=== PATIENT | female | born 1990 | race Caucasian/White ===

== ENCOUNTER 2016-05-12 12:18 | Emergency (ER) | payer OTHER ==
[~2016-05-12] VITALS: Ht 160 cm; Wt 63.1 kg
[~2016-05-12 12:18] MED LIST: ACET325T33 PO; CYCL-319 PO
[2016-05-12 12:20] VITALS: Ht 160 cm; Wt 63.1 kg
[2016-05-12] MEDS ORDERED: IBUP-1542 PO (14:16)
[2016-05-12] MEDS ORDERED: ACET500C5 PO (14:16)
[2016-05-12] MEDS ORDERED: UDROBDM PO (14:16)
[2016-05-12] MEDS ORDERED: FLUT9.9S NASAL (14:17)
--- NOTE | 2016-05-12 14:23 | ERD ---
ER Documentation Chief Complaint Date/Time DATE: 05/12/16 TIME: 14:21 Chief Complaint cough,st x 2 days HPI This is 25-year-old female who presents to emergency department today with headache, sore throat, cough, body aches, fever or earache for the past 5 days. She is taking ibuprofen. Denies any vomiting or diarrhea ROS All systems reviewed and are negative except as per history of present illness. Medications Home Meds Active Scripts Fluticasone Propionate (Flonase Allergy Relief) 9.9 Ml [place].susp, 1 SPRAY NASAL DAILY, #1 BOTTLE TO EACH NOSTRIL Prov:SENDY ABBOTT PA-C 05/12/16 Guaifenesin-Dextromethorphan* (Robitussin* DM) 100MG/10MG/5ML Syrup, 10 ML PO Q4H Y for COUGH for 5 Days, ML Prov:SENDY ABBOTT PA-C 05/12/16 Acetaminophen* (Tylophen*) 500 Mg Capsule, 1 CAP PO Q6H Y for PAIN AND OR ELEVATED TEMP, #30 CAP Prov:SENDY ABBOTT PA-C 05/12/16 Ibuprofen* (Motrin*) 600 Mg Tab, 600 MG PO Q6, #30 TAB Prov:SENDY ABBOTT PA-C 05/12/16 Acetaminophen* (Tylenol*) 325 Mg Tablet, 1 TAB PO Q6 Y for PAIN AND OR ELEVATED TEMP, #20 TAB Prov:ERIN JEFFREY PA-C 09/09/15 Cyclobenzaprine Hcl* (Cyclobenzaprine Hcl*) 10 Mg Tablet, 10 MG PO BID, #20 TAB Prov:ERIN JEFFREY PA-C 09/09/15 Allergies Allergies: Coded Allergies: No Known Drug Allergies (Verified Allergy, Unknown, 03/12/14) PMhx/Soc History of Surgery: Yes (C SECTION 2007) Anesthesia Reaction: No Hx Neurological Disorder: No Hx Respiratory Disorders: No Hx Cardiac Disorders: No Hx Psychiatric Problems: No Hx Miscellaneous Medical Probl: Yes (MIGRAINE ) Hx Alcohol Use: Yes Hx Substance Use: No Hx Tobacco Use: No Physical Exam Vitals Vital Signs Date Time Temp Pulse Resp B/P Pulse Ox O2 Delivery O2 Flow Rate FiO2 05/12/16 12:20 98.1 75 18 120/75 99 Physical Exam Const: Nontoxic appearing, no acute distress Head: Atraumatic Eyes: Normal Conjunctiva ENT: Ears TMs normal. Nose no drainage. Throat no erythema no exudate . Neck: Full range of motion..~ No meningismus. Resp: Clear to auscultation bilaterally. No absent breath sounds. No wheezing. Cardio: Regular rate and rhythm, no murmurs Abd: Soft, non tender, non distended. Normal bowel sounds Skin: No petechiae or rashes Neur: Awake and alert Psych: Normal Mood and Affect Procedures/MDM This 25-year-old female who presents to the emergency department today complaining of flulike symptoms. Patient is afebrile here in the emergency department. Her oxygen saturation is 99%.Do not feel that she requires laboratory workup or imaging at this time. I have low suspicion for strep pharyngitis, peritonsillar abscess, retropharyngeal abscess, otitis media, PNA, sinusitis, abscess, meningitis, sepsis, or other acute infectious bacterial process. Patient was given a prescription for Tylenol, Motrin, Robitussin and Flonase. At this time the patient is stable for discharge and outpatient management. They should follow up with their PCP in the next 1-2. They may return to the emergency department sooner if symptoms persist or worsen. Patient understood and agreed with the plan. Departure Diagnosis: Primary Impression: Influenza-like symptoms Condition: Fair Patient Instructions: Influenza (Adult) Referrals: COMMUNITY CLINICS YOU HAVE RECEIVED A MEDICAL SCREENING EXAM AND THE RESULTS INDICATE THAT YOU DO NOT HAVE A CONDITION THAT REQUIRES URGENT TREATMENT IN THE EMERGENCY DEPARTMENT. FURTHER EVALUATION AND TREATMENT OF YOUR CONDITION CAN WAIT UNTIL YOU ARE SEEN IN YOUR DOCTORS OFFICE WITHIN THE NEXT 1-2 DAYS. IT IS YOUR RESPONSIBILITY TO MAKE AN APPOINTMENT FOR FOLOW-UP CARE. IF YOU HAVE A PRIMARY DOCTOR --you should call your primary doctor and schedule an appointment IF YOU DO NOT HAVE A PRIMARY DOCTOR YOU CAN CALL OUR PHYSICIAN REFERRAL HOTLINE AT IF YOU CAN NOT AFFORD TO SEE A PHYSICIAN YOU CAN CHOSE FROM THE FOLLOWING FORMERLY [facility] [address] [facility]. [facility] [address] [facility] [address] [facility]. [facility] [address] [facility]. [facility] [address] [facility] [address] Additional Instructions: Call your primary care doctor TOMORROW for an appointment during the next 1-2 days.See the doctor sooner or return here if your condition worsens before your appointment time. Take Tylenol 4 hours or Motrin 6 hours for headache or pain or fever Take Robitussin for cough Flonase for nasal congestion Drink Plenty of clear fluids SENDY ABBOTT PA-C May 12, 2016 14:23
== END 2016-05-12 14:31 | disposition home or self-care (01) ==
LOC: FTE 12:18
DX: R51 Headache (principal); J02.9 Acute pharyngitis, unspecified
CPT/HCPCS: 99283

== ENCOUNTER 2016-10-06 18:13 | Emergency (ER) | payer OTHER ==
[~2016-10-06] VITALS: Ht 157.5 cm; Wt 63.0 kg
[~2016-10-06 18:13] MED LIST changes: +ACET500C5 PO; +FLUT9.9S NASAL; +IBUP-1542 PO; +UDROBDM PO
[2016-10-06 18:16] VITALS: Ht 157.5 cm; Wt 63.0 kg
[2016-10-06] MEDS ORDERED: HYDROCODONE/APAP (5/325) TAB PO STA (19:22)
[2016-10-06] MEDS ORDERED: IBUPROFEN 600 MG TAB PO STA (19:22)
--- NOTE | 2016-10-06 21:00 | RADRPT ---
PROCEDURE: XR Left Foot. CLINICAL INDICATION: Trauma. Pain. TECHNIQUE: AP, lateral and oblique views of the left foot was obtained. The images were reviewed on a PACS workstation. COMPARISON: None. FINDINGS: There are no fractures. Joint relationships are maintained. Bone mineralization is within normal l imits. Soft tissues are unremarkable. IMPRESSION: No acute abnormality. RPTAT: HMVK .Jamil Pitts MD, MD Date Time Electronically viewed and signed by .Jamil Pitts MD, on 10/06/2016 21:00 .K/
[2016-10-06] MEDS ORDERED: IBUP-1542 PO (21:11)
--- NOTE | 2016-10-06 21:18 | ERD ---
ER Documentation Chief Complaint Date/Time DATE: 10/06/16 TIME: 21:15 Chief Complaint lt foot pain s/p trip and fall at work HPI This is a 25-year-old female presenting to the emergency department complaining of left foot pain located mostly in the lateral side status post hip and fall that occurred while she was at work at 3 PM today. Patient states the pain is 6 out of 10 in increased with movement and walking. Patient denies taking any medications for this. She admits to having some swelling to ROS All systems reviewed and are negative except as per history of present illness. Medications Home Meds Active Scripts Ibuprofen* (Motrin*) 600 Mg Tab, 600 MG PO Q6H Y for PAIN AND OR ELEVATED TEMP, #30 TAB Prov:WAQAS FERNANDEZ PA-C 10/06/16 Fluticasone Propionate (Flonase Allergy Relief) 9.9 Ml [place].susp, 1 SPRAY NASAL DAILY, #1 BOTTLE TO EACH NOSTRIL Prov:SENDY ABBOTT PA-C 05/12/16 Guaifenesin-Dextromethorphan* (Robitussin* DM) 100MG/10MG/5ML Syrup, 10 ML PO Q4H Y for COUGH for 5 Days, ML Prov:SENDY ABBOTT PA-C 05/12/16 Acetaminophen* (Tylophen*) 500 Mg Capsule, 1 CAP PO Q6H Y for PAIN AND OR ELEVATED TEMP, #30 CAP Prov:SENDY ABBOTT PA-C 05/12/16 Ibuprofen* (Motrin*) 600 Mg Tab, 600 MG PO Q6, #30 TAB Prov:SENDY ABBOTT PA-C 05/12/16 Acetaminophen* (Tylenol*) 325 Mg Tablet, 1 TAB PO Q6 Y for PAIN AND OR ELEVATED TEMP, #20 TAB Prov:ERIN JEFFREY PA-C 09/09/15 Cyclobenzaprine Hcl* (Cyclobenzaprine Hcl*) 10 Mg Tablet, 10 MG PO BID, #20 TAB Prov:ERIN JEFFREY PA-C 09/09/15 Allergies Allergies: Coded Allergies: No Known Drug Allergies (Verified Allergy, Unknown, 03/12/14) PMhx/Soc History of Surgery: Yes (C SECTION 2007) Anesthesia Reaction: No Hx Neurological Disorder: No Hx Respiratory Disorders: No Hx Cardiac Disorders: No Hx Psychiatric Problems: No Hx Miscellaneous Medical Probl: Yes (MIGRAINE ) Hx Alcohol Use: Yes Hx Substance Use: No Hx Tobacco Use: No Smoking Status: Never smoker Physical Exam Vitals Vital Signs Date Time Temp Pulse Resp B/P Pulse Ox O2 Delivery O2 Flow Rate FiO2 10/06/16 18:16 98.1 76 18 117/61 99 Physical Exam General: WD/WN, in no apparent distress, non-toxic appearing HENT: NC/AT Eyes: Conjunctiva normal Neck: Supple Pulm: Clear to auscultation, normal labored breathing; no wheezing/rales/ rhonchi heard CV: Good capillary refill GI: Non-distended, no guarding Back: No masses Ext: Tenderness palpation of the left lateral foot with moderate swelling. Restricted range of motion due to pain. Neuro: Moves on all fours Skin: intact Psych: Normal mood Results 24 hrs Current Medications Medications (Trade) Dose Ordered Sig/Jamey Route PRN Reason Start Time Stop Time Status Last Admin Dose Admin Ibuprofen (Motrin) 600 mg ONCE STAT PO 10/06/16 19:22 10/06/16 19:23 DC 10/06/16 20:31 Acetaminophen/ Hydrocodone Bitart ([place] (5/325)) 1 tab ONCE STAT PO 10/06/16 19:22 10/06/16 19:23 DC 10/06/16 20:31 Procedures/MDM This is 25-year-old female presenting to the emergency department complaining of left foot pain most likely due to a sprain. There was no evidence of a fracture dislocation. No evidence of compartment syndrome. An x-ray was done in the left foot and radiologist states no fracture or dislocation. An Martín bandage was placed. Patient is neurovascular intact pre-and post treatment. Patient was given crutches for support. Discussed return to the ER for any worsening symptoms. Patient understands and agrees with plan. Prescription for ibuprofen with right Departure Diagnosis: Primary Impression: Foot pain Additional Impression: Foot sprain Condition: Stable Patient Instructions: Sprain Foot Additional Instructions: FOLLOW UP WITH YOUR PRIMARY CARE PHYSICIAN TOMORROW.Return to this facility if you are not improving as expected. Take all medicines as directed. Return to this facility if you are not improving as expected. WAQAS FERNANDEZ PA-C Oct 06, 2016:18
== END 2016-10-06 21:29 | disposition home or self-care (01) ==
LOC: FTE 18:13
DX: S93.602A Unspecified sprain of left foot, initial encounter (principal); W01.0XXA Fall on same level from slipping, tripping and stumbling without subsequent striking against object, initial encounter; Y92.89 Other specified places as the place of occurrence of the external cause
CPT/HCPCS: 73630; Z7610

== ENCOUNTER 2017-02-08 12:41 | Emergency (ER) | payer OTHER ==
[~2017-02-08] VITALS: Ht 157.5 cm; Wt 70.0 kg
[2017-02-08 12:44] VITALS: Ht 157.5 cm; Wt 70.0 kg
[2017-02-08] MEDS ORDERED: ACETAMINOPHEN 500 MG TAB PO STA (13:05)
--- NOTE | 2017-02-08 14:32 | RADRPT ---
PROCEDURE: Obstetrical ultrasound CLINICAL INDICATION: trauma TECHNIQUE: Multiple sonographic images of the pelvis were obtained. The images were reviewed on a PACS workstation. COMPARISON: None LMP: 10/06/2016 FINDINGS: The cervix is closed with a length of 4.1 cm. Funneling is noted at the internal cervical os measuri ng up to 5 mm in diameter. There is a single viable intrauterine gestation. Cardiac activity is present with 146 beats per minute. There is a variable presentation. The placenta is anterior. There is no evidence for an abruption or placenta previa. There is a normal amount of amniotic fluid with a maximum vertical pocket of 3.2 cm. Measurements were made in order to determine age. The results are as follows (cm): BPD =3.21 HC =12.46 AC =10.18 FL =2.07 Estimated gestational age by ultrasound of approximately 16 weeks, 1 day. The estimated date of delivery by ultrasound is 07/25/2017. Estimated gestational age by LMP of approximately 17 weeks, 6 days. The estimated date of delivery by LMP is 07/13/2017. EFW = 148 grams (below the 3rd percentile) Bilateral ovaries are not visualized. There are no abnormal adnexal masses. IMPRESSION: Single viable intrauterine gestation of approximately 16 weeks, 1 day . The estimated date of delivery is 07/25/2017 . Dating by ultrasound is within 12 days of dating by LMP. Funneling is noted at the internal cervical os measuring up to 5 mm in diameter. The closed portion of the cervix measures up to 4.1 cm. Normal amount of amniotic fluid. Estimated weight is 148 g which is below the 3rd percentile. Anterior placenta without evidence of an abruption or placenta previa. RPTAT: EE Physician Raoul Date Time Electronically viewed and signed by Physician Raoul on 02/08/2017 14:31 /
--- NOTE | 2017-02-08 14:50 | ERD ---
ER Documentation Chief Complaint Chief Complaint abdominal pain s/p fall from chair, no ko HPI 26-year-old female is approximately 15 weeks . She was on a chair which fell backwards and she sustained some blunt abdominal trauma to her abdomen. She denies any vaginal bleeding, fevers, additional complaints. She has mild pain in the lower abdomen. ROS All systems reviewed and are negative except as per history of present illness. Medications Home Meds Active Scripts Ibuprofen* (Motrin*) 600 Mg Tab, 600 MG PO Q6H Y for PAIN AND OR ELEVATED TEMP, #30 TAB Prov:WAQAS FERNANDEZ PA-C 10/06/16 Fluticasone Propionate (Flonase Allergy Relief) 9.9 Ml [place].susp, 1 SPRAY NASAL DAILY, #1 BOTTLE TO EACH NOSTRIL Prov:SENDY ABBOTT PA-C 05/12/16 Guaifenesin-Dextromethorphan* (Robitussin* DM) 100MG/10MG/5ML Syrup, 10 ML PO Q4H Y for COUGH for 5 Days, ML Prov:SENDY ABBOTT PA-C 05/12/16 Acetaminophen* (Tylophen*) 500 Mg Capsule, 1 CAP PO Q6H Y for PAIN AND OR ELEVATED TEMP, #30 CAP Prov:SENDY ABBOTT PA-C 05/12/16 Ibuprofen* (Motrin*) 600 Mg Tab, 600 MG PO Q6, #30 TAB Prov:SENDY ABBOTT PA-C 05/12/16 Acetaminophen* (Tylenol*) 325 Mg Tablet, 1 TAB PO Q6 Y for PAIN AND OR ELEVATED TEMP, #20 TAB Prov:ERIN JEFFREY PA-C 09/09/15 Cyclobenzaprine Hcl* (Cyclobenzaprine Hcl*) 10 Mg Tablet, 10 MG PO BID, #20 TAB Prov:ERIN JEFFREY PA-C 09/09/15 Allergies Allergies: Coded Allergies: No Known Drug Allergies (Verified Allergy, Unknown, 02/08/17) PMhx/Soc History of Surgery: Yes (C SECTION 2007, CHOLECYSTECTOMY 2010) Anesthesia Reaction: No Hx Neurological Disorder: No Hx Respiratory Disorders: No Hx Cardiac Disorders: No Hx Psychiatric Problems: No Hx Miscellaneous Medical Probl: Yes (MIGRAINE ) Hx Alcohol Use: Yes Hx Substance Use: No Hx Tobacco Use: No Physical Exam Vitals Vital Signs Date Time Temp Pulse Resp B/P Pulse Ox O2 Delivery O2 Flow Rate FiO2 02/08/17 12:44 98.0 72 16 118/80 100 Physical Exam Const: [], [id number]. Head: Atraumatic Eyes: Normal Conjunctiva ENT: Normal External Ears, Nose and Mouth. Neck: Full range of motion..~ No meningismus. Resp: Clear to auscultation bilaterally Cardio: Regular rate and rhythm, no murmurs Abd: Soft, mild tenderness in the lower abdomen without tenderness at McBurney's point no ecchymosis. No rebound. non distended. Normal bowel sounds Skin: No petechiae or rashes Back: No midline or flank tenderness Ext: No cyanosis, or edema Neur: Awake and alert Psych: Normal Mood and Affect Results 24 hrs Current Medications Medications (Trade) Dose Ordered Sig/Jamey Route PRN Reason Start Time Stop Time Status Last Admin Dose Admin Acetaminophen (Tylenol Tab) 500 mg ONCE STAT PO 02/08/17 13:05 02/08/17 13:06 DC 02/08/17 13:16 Procedures/MDM The ultrasound shows approximately 16 week without acute findings. There is some noted internal funneling of the internal office otherwise no evidence of abruption, additional acute abnormalities. Patient presents with some blunt abdominal trauma to her second trimester without signs of significant abdominal trauma or threats to . She will discharged home with prescription for Tylenol for pain, OB follow-up and return precautions. The patient was stable with no new complaints during the ER course. Clinically, there is no current evidence to suggest meningitis, sepsis, acute abdomen, pneumonia, acute coronary syndrome, pulmonary embolism, or any other emergent condition appearing to require further evaluation or hospitalization. The patient should certainly return for any new or worsening symptoms per the aftercare instructions. They should otherwise follow-up with her primary care doctor for reevaluation this week. Departure Diagnosis: Primary Impression: Abdominal trauma Encounter type: initial encounter Qualified Code: S39.91XA - Abdominal trauma, initial encounter Additional Impression: Abdominal pain Abdominal location: generalized Qualified Code: R10.84 - Generalized abdominal pain Condition: Stable Patient Instructions: Abdominal Trauma, Blunt (Benign), Abdominal Pain, Early Additional Instructions: No acute findings seen on ultrasound today and read as normal. Recheck with OB or return for bleeding, fevers, new or worsening symptoms. Okay to take Tylenol for pain. KUNAL ONEIL MD Feb 08, 2017 14:49
== END 2017-02-08 15:18 | disposition home or self-care (01) ==
LOC: FTE 12:41
DX: O9A.212 Injury, poisoning and certain other consequences of external causes complicating pregnancy, second trimester (principal); S39.91XA Unspecified injury of abdomen, initial encounter; W07.XXXA Fall from chair, initial encounter; Y92.9 Unspecified place or not applicable; Z3A.16 16 weeks gestation of pregnancy
CPT/HCPCS: 76805; Z7502; Z7610

== ENCOUNTER 2017-07-04 12:08 | Outpatient (CLI) | END 2017-07-04 15:43 | disposition home or self-care (01) ==

== ENCOUNTER 2017-07-19 16:42 | Outpatient (CLI) | END 2017-07-19 18:35 | disposition home or self-care (01) ==

== ENCOUNTER 2017-07-23 05:57 | Inpatient (IN) | END 2017-07-27 14:50 | disposition home or self-care (01) | DRG 766 ==

== ENCOUNTER 2017-07-30 20:48 | Emergency (ER) | END 2017-07-30 23:11 | disposition home or self-care (01) ==

== ENCOUNTER 2017-12-27 18:55 | Emergency (ER) | END 2017-12-27 19:43 | disposition home or self-care (01) ==

== ENCOUNTER 2018-04-06 13:27 | Emergency (ER) | payer OTHER ==
[~2018-04-06] VITALS: Ht 157.5 cm; Wt 86.4 kg
[~2018-04-06 13:27] MED LIST changes: -ACET325T33 PO; -ACET500C5 PO; +BACI28.34 TOP; +CLOT30CR24 TOP; -CYCL-319 PO; -FLUT9.9S NASAL; +HC30CR25 TOP; +HYDR-3980 PO; -IBUP-1542 PO; +NAPR-688 PO; +PREN-93 PO; -UDROBDM PO; +VALA500T PO
[2018-04-06 13:43] VITALS: BP 140/79; PULSE 63; RESP 19; Ht 157.5 cm; Wt 86.4 kg
--- NOTE | 2018-04-06 15:10 | ERD ---
ER Documentation Chief Complaint Chief Complaint RIGHT RIB CAGE PAIN HPI 27-year-old female, presents to the emergency department, complaining of 3 days with acute onset of right chest wall pain. The patient is reporting a history of 7 days with upper respiratory symptoms including persistent cough, worse at night, but no fever, no chills no respiratory distress. She denies history of trauma in the area. No palpitations, no rashes. No medications taken at this time. ROS All systems reviewed and are negative except as per history of present illness. Medications Home Meds Active Scripts Promethazine Hcl* (Promethazine Hcl* Syrup) 6.25 Mg/5 Ml Syrup, 6.25 MG PO QHS PRN for COUGH, #60 ML Prov:DELIA OLSON MD 04/06/18 Acetaminophen* (Tylenol*) 325 Mg Tablet, 2 TAB PO Q8 PRN for PAIN AND OR ELEVATED TEMP, #20 TAB Prov:DELIA OLSON MD 04/06/18 Hydrocortisone* Topical (Hydrocortisone* Topical) 2.5%-28.3 Gm Cream..g., 1 APPLIC TOP BID, #1 TUB Prov:HEATH GARCIA PA-C 12/27/17 Bacitracin* (Bacitracin Zinc Oint*) 28.35 Gm Oint, 1 APPLIC TOP BID, #1 TUB APPLI TO Prov:HEATH GARCIA PA-C 12/27/17 Clotrimazole* (Clotrimazole* AF) 1% - 30 Gm Cream.gm., 1 APPLIC TOP BID for 7 Days, TUB Prov:HEATH GARCIA PA-C 12/27/17 Naproxen* (Naproxen*) 500 Mg Tablet, 500 MG PO BID PRN for PAIN, #20 TAB Prov:LAVONNE MORRISON DO 07/30/17 Hydrocodone/Acetaminophen ([place] 10-325 Tablet) 1 Each Tablet, 1 EACH PO Q6, #14 TAB Prov:LAVONNE MORRISON DO 07/30/17 Valacyclovir Hcl* (Valacyclovir Hcl*) 500 Mg Tablet, 1000 MG PO TID for 7 Days, TAB Prov:LAVONNE MORRISON DO 07/30/17 Reported Medications Vit No.124/Iron/FA ( Vitamin Tablet) 1 Each Tablet, 1 EACH PO, TAB 4/9/18 Allergies Allergies: Coded Allergies: No Known Drug Allergies (Verified Allergy, Unknown, 02/08/17) PMhx/Soc History of Surgery: Yes (C SECTION 2007, CHOLECYSTECTOMY 2010) Anesthesia Reaction: No Hx Neurological Disorder: No Hx Respiratory Disorders: No Hx Cardiac Disorders: No Hx Psychiatric Problems: No Hx Miscellaneous Medical Probl: Yes (MIGRAINE ) Hx Alcohol Use: No Hx Substance Use: No Hx Tobacco Use: No Physical Exam Vitals Vital Signs Date Temp Pulse Resp B/P (MAP) Pulse Ox O2 O2 Flow FiO2 Time Delivery Rate 04/06/18 97.4 63 19 140/79 97 13:43 (99) Physical Exam Const: No acute distress Head: Atraumatic Eyes: Normal Conjunctiva ENT: Normal External Ears, Nose and Mouth. Neck: Full range of motion. No meningismus. Resp: Clear to auscultation bilaterally Cardio: Regular rate and rhythm, no murmurs Abd: Soft, non tender, non distended. Normal bowel sounds Skin: No petechiae or rashes Back: No midline or flank tenderness Ext: No cyanosis, or edema Neur: Awake and alert Psych: Normal Mood and Affect Results 24 hrs DIAGNOSTIC IMAGING REPORT Patient: MIGUEL SERRANO : 1990 Age: 27 Sex: F MR #: [id number] DOS: 04/06/18 1417 Ordering MD: DELIA OLSON MD Location: [facility] Room/Bed: PROCEDURE: XR Chest. CLINICAL INDICATION: Cough TECHNIQUE: PA and lateral views of the chest were obtained. COMPARISON: CR CHEST 09/09/2015; CR CHEST 03/10/2014 FINDINGS: No focal airspace opacification, pleural effusion or pneumothorax is seen. The cardiomediastinal silhouette is within normal limits for size. The osseous structures are unremarkable. IMPRESSION: Unremarkable chest x-ray series. RPTAT: HH .Reean Frias MD, Date Time Electronically viewed and signed by .Reena Frias MD, on 04/06/2018 14:39 .G/ CC: DELIA OLSON MD [phone] Procedures/MDM Differential diagnosis include but not limited to: Pneumonia, soft tissue contusion, sprain/strain, muscle spasm, fracture. Neurovascular exam grossly intact. no clinical findings suggestive of fracture, no acute deformity, no edema, no rashes. Physical examination and clinical presentation consistent most likely with chest wall muscle strain, most likely secondary to cough. During the ED course the patient remained stable, without complaints. Results and clinical impression discussed with patient who agrees with management. The patient is stable to be treated outpatient and will be discharged home with recommendations and close monitoring The patient was instructed to follow up with the primary care provider in the next 48h. If symptoms persist, worsen or new symptoms develop, then patient should return to the ED immediately. Instructions explained and given to patient with acknowledgment and demonstrated understanding. Disclaimer: Inadvertent spelling and grammatical errors are likely due to EHR/dictation software use and do not reflect on the overall quality of patient care. Also, please note that the electronic time recorded on this note does not necessarily reflect the actual time of the patient encounter. Departure Diagnosis: Primary Impression: Cough Additional Impression: Chest wall muscle strain Condition: Stable Additional Instructions: Thank you very much for allowing us to participate in your care. Your health and safety is our top priority at [facility]. Call your primary care doctor TOMORROW for an appointment during the next 2-4 days and bring all the information and medications prescribed. Have prescriptions filled and follow precisely the directions on the label. If the symptoms get worse and your provider is unavailable, return to the Emergency Department immediately. DELIA OLSON MD Apr 06, 2018 15:10
[2018-04-06] MEDS ORDERED: ACET325T33 PO (15:11)
[2018-04-06] MEDS ORDERED: PROM6.2515 PO (15:11)
== END 2018-04-06 15:38 | disposition home or self-care (01) ==
LOC: FTE 13:27
DX: S29.011A Strain of muscle and tendon of front wall of thorax, initial encounter (principal); R05 Cough; X58.XXXA Exposure to other specified factors, initial encounter; Y92.9 Unspecified place or not applicable
CPT/HCPCS: 71046; Z7502

== ENCOUNTER 2018-04-17 14:43 | Emergency (ER) | payer OTHER ==
[~2018-04-17] VITALS: Ht 157.5 cm; Wt 84.3 kg
[~2018-04-17 14:43] MED LIST changes: +ACET325T33 PO; +PROM6.2515 PO
[2018-04-17 15:23] VITALS: Ht 157.5 cm; Wt 84.3 kg
[2018-04-17] MEDS ORDERED: ONDANSETRON 4 MG INJ IV STA (17:58)
[2018-04-17] MEDS ORDERED: SOD CHLORIDE 0.9% 1,000 ML IV STA (17:58)
[2018-04-17] MEDS ORDERED: KETOROLAC 30 MG INJ IV STA (17:58)
[2018-04-17] MEDS ORDERED: ACETAMINOPHEN 325 MG TAB PO ONE (18:00)
[2018-04-17 19:01] VITALS: BP 101/50; PULSE 102; RESP 18
[2018-04-17] MEDS ORDERED: IBUP-1542 PO (19:01)
[2018-04-17] MEDS ORDERED: ONDA8TAB14 PO (19:01)
--- NOTE | 2018-04-17 19:06 | ERD ---
ER Documentation Chief Complaint Chief Complaint complains of abdominal pain with fever x 2 days HPI 27-year-old female presents with fever and intermittent vomiting for last 2 days. She also has body aches. She has had some right chest wall pain for several months as well. She had a normal x-ray. She has a history of cholecyst ectomy. She is concerned she may have UTI as well. Denies calf swelling, hemoptysis, shortness of breath. ROS All systems reviewed and are negative except as per history of present illness. Medications Home Meds Active Scripts Ibuprofen* (Motrin*) 600 Mg Tab, 600 MG PO Q6, #30 TAB Prov:KUNAL ONEIL MD 04/17/18 Ondansetron (Ondansetron Odt) 8 Mg Tab.rapdis, 8 MG PO Q6H PRN for NAUSEA AND/OR VOMITING, #10 TAB Prov:KUNAL ONEIL MD 04/17/18 Promethazine Hcl* (Promethazine Hcl* Syrup) 6.25 Mg/5 Ml Syrup, 6.25 MG PO QHS PRN for COUGH, #60 ML Prov:DELIA OLSON MD 04/06/18 Acetaminophen* (Tylenol*) 325 Mg Tablet, 2 TAB PO Q8 PRN for PAIN AND OR ELEVATED TEMP, #20 TAB Prov:DELIA OLSON MD 04/06/18 Hydrocortisone* Topical (Hydrocortisone* Topical) 2.5%-28.3 Gm Cream..g., 1 APPLIC TOP BID, #1 TUB Prov:HEATH GARCIA PA-C 12/27/17 Bacitracin* (Bacitracin Zinc Oint*) 28.35 Gm Oint, 1 APPLIC TOP BID, #1 TUB APPLI TO Prov:HEATH GARCIA PA-C 12/27/17 Clotrimazole* (Clotrimazole* AF) 1% - 30 Gm Cream.gm., 1 APPLIC TOP BID for 7 Days, TUB Prov:HEATH GARCIA PA-C 12/27/17 Naproxen* (Naproxen*) 500 Mg Tablet, 500 MG PO BID PRN for PAIN, #20 TAB Prov:LAVONNE MORRISON DO 07/30/17 Hydrocodone/Acetaminophen ([place] 10-325 Tablet) 1 Each Tablet, 1 EACH PO Q6, #14 TAB Prov:LAVONNE MORRISON DO 07/30/17 Valacyclovir Hcl* (Valacyclovir Hcl*) 500 Mg Tablet, 1000 MG PO TID for 7 Days, TAB Prov:LAVONNE MORRISON DO 07/30/17 Reported Medications Vit No.124/Iron/FA ( Vitamin Tablet) 1 Each Tablet, 1 EACH PO, TAB 07/04/17 Allergies Allergies: Coded Allergies: No Known Drug Allergies (Verified Allergy, Unknown, 02/08/17) PMhx/Soc History of Surgery: Yes (C SECTION 2007, CHOLECYSTECTOMY 2010) Anesthesia Reaction: No Hx Neurological Disorder: No Hx Respiratory Disorders: No Hx Cardiac Disorders: No Hx Psychiatric Problems: No Hx Miscellaneous Medical Probl: Yes (MIGRAINE ) Hx Alcohol Use: No Hx Substance Use: No Hx Tobacco Use: No Smoking Status: Never smoker FmHx Family History: No diabetes, No coronary disease, No other Physical Exam Vitals Vital Signs Date Temp Pulse Resp B/P (MAP) Pulse Ox O2 O2 Flow FiO2 Time Delivery Rate 04/17/18 99.0 102 18 101/50 97 Room Air 19:01 (67) 04/17/18 100.6 18:13 04/17/18 100.6 105 20 130/72 98 15:23 (91) Physical Exam Const: No acute distress Head: Atraumatic Eyes: Normal Conjunctiva ENT: Normal External Ears, Nose and Mouth. Neck: Full range of motion. No meningismus. Resp: Clear to auscultation bilaterally. Tenderness right T10 chest wall. No Last sign. No abdominal tenderness. Cardio: Regular rate and rhythm, no murmurs Abd: Soft, non tender, non distended. Normal bowel sounds Skin: No petechiae or rashes Back: No midline or flank tenderness Ext: No cyanosis, or edema Neur: Awake and alert Psych: Normal Mood and Affect Result Diagram: 04/17/18180604/17/181806 Results 24 hrs Laboratory Tests Test 04/17/18 18:07 04/17/18 18:33 White Blood Count 11.3 10^3/ul Red Blood Count 4.73 10^6/ul Hemoglobin 14.7 g/dl Hematocrit 44.2 % Mean Corpuscular Volume 93.4 fl Mean Corpuscular Hemoglobin 31.1 pg Mean Corpuscular Hemoglobin Concent 33.3 g/dl Red Cell Distribution Width 11.9 % Platelet Count 269 10^3/UL Mean Platelet Volume 10.5 fl Immature Granulocytes % 0.400 % Neutrophils % 92.2 % Lymphocytes % 3.5 % Monocytes % 3.7 % Eosinophils % 0.0 % Basophils % 0.2 % Nucleated Red Blood Cells % 0.0 /100WBC Immature Granulocytes # 0.050 10^3/ul Neutrophils # 10.4 10^3/ul Lymphocytes # 0.4 10^3/ul Monocytes # 0.4 10^3/ul Eosinophils # 0.0 10^3/ul Basophils # 0.0 10^3/ul Nucleated Red Blood Cells # 0.0 10^3/ul Urine Color YELLOW Urine Clarity CLEAR Urine pH 5.0 Urine Specific [place] 1.024 Urine Ketones 1+ mg/dL Urine Nitrite NEGATIVE mg/dL Urine Bilirubin NEGATIVE mg/dL Urine Urobilinogen NEGATIVE mg/dL Urine Leukocyte Esterase NEGATIVE [place]isabet/ul Urine Hemoglobin NEGATIVE mg/dL Urine Glucose 1+ mg/dL Urine Total Protein NEGATIVE mg/dl Sodium Level 138 mmol/L Potassium Level 4.1 mmol/L Chloride Level 104 mmol/L Carbon Dioxide Level 20 mmol/L Anion Gap 14 Blood Urea Nitrogen 12 mg/dl Creatinine 0.60 mg/dl Est Glomerular Filtrat Rate mL/min > 60 mL/min Glucose Level 111 mg/dl Calcium Level 9.5 mg/dl Total Bilirubin 0.9 mg/dl Direct Bilirubin 0.00 mg/dl Indirect Bilirubin 0.9 mg/dl Aspartate Amino Transf (AST/SGOT) 42 IU/L Alanine Aminotransferase (ALT/SGPT) 34 IU/L Alkaline Phosphatase 107 IU/L Total Protein 8.2 g/dl Albumin 4.9 g/dl Globulin 3.30 g/dl Albumin/Globulin Ratio 1.48 Lipase 23 U/L POC Beta HCG, Qualitative NEGATIVE Current Medications Medications Dose Sig/Jamey Start Time Status Last (Trade) Ordered Route PRN Stop Time Admin Dose Reason Admin Sodium 1,000 ml @ Q1H STAT 04/17/18 DC 04/17/18 Chloride 1,000 mls/hr IV 17:58 18:08 04/17/18 18:57 Ondansetron 4 mg ONCE STAT 04/17/18 DC 04/17/18 HCl (Zofran IV 17:58 18:13 Inj) 04/17/18 17:59 Ketorolac 30 mg ONCE STAT 04/17/18 DC 04/17/18 Tromethamine IV 17:58 18:37 (Toradol) 04/17/18 17:59 650 mg ONCE ONCE 04/17/18 DC 04/17/18 Acetaminophen PO 18:00 18:13 (Tylenol 04/17/18 18:01 Tab) Procedures/MDM CBC shows a white blood cell count 11.3. CMP and lipase showed no significant abnormality except for CO2 of 20. Patient was given 1 L normal saline IV. Urine is negative for findings of infection. Chest X-ray 1V Interpreted by me: Soft Tissue: No acute abnormalities Bones: No acute abnormalities Mediastinum/Cardiac Silhouette/Lungs: No acute abnormalities. Patient was given Zofran and Toradol IV. Patient was given Tylenol as well. She was well-appearing and had a benign abdomen on serial exam. Patient presents with viral illness, body aches, vomiting. She may have a viral illness. Does not appear to be relation to her right chest wall pain she has had for a few months. Doubt PE given the duration of symptoms and presentation. Patient has PERC score 1 with tachycardia likely due to fever. Patient will be treated with Zofran, ibuprofen, primary care follow-up and return precautions for shortness of breath, vomiting despite treatment, blood, abdominal pain, new worsening symptoms. Departure Diagnosis: Primary Impression: Vomiting Vomiting type: unspecified Vomiting Intractability: unspecified Nausea presence: unspecified Qualified Codes: R11.10 - Vomiting, unspecified Additional Impression: Fever Fever type: unspecified Qualified Codes: R50.9 - Fever, unspecified Condition: Stable Patient Instructions: Chest Wall Pain, Costochondritis, Fever Control (Adult), Vomiting (6Y-Adult) Additional Instructions: Examination showed no significant findings of infection today. May be viral syndrome which may last a few days. Recheck for new or worsening symptoms with primary care doctor. KUNAL ONEIL MD Apr 17, 2018 19:06
== END 2018-04-17 19:20 | disposition home or self-care (01) ==
LOC: FTE 14:43
DX: R11.10 Vomiting, unspecified (principal); R50.9 Fever, unspecified
CPT/HCPCS: 36415; 71045; 80053; 81003; 81025; 83690; 85025; 96374; 96375; J1885; J2405; J7030; Z7502; Z7610

== ENCOUNTER 2019-01-19 07:16 | Inpatient (IN) | payer OTHER ==
[~2019-01-19] VITALS: Ht 157.5 cm; Wt 78.5 kg
[~2019-01-19 07:16] MED LIST changes: +IBUP-1542 PO; +ONDA8TAB14 PO
[2019-01-19 07:35] VITALS: Ht 157.5 cm; Wt 78.5 kg
[2019-01-19] MEDS ORDERED: LACTATED RINGER'S 1,000 ML IV ONE (08:00)
[2019-01-19] MEDS ORDERED: CEFAZOLIN 2 GM/50 ML (PMX) 50 ML IVPB SCH (08:00)
[2019-01-19] MEDS ORDERED: METHYLERGONOVINE 0.2 MG INJ IM PRN ×2 (08:00→21:30)
[2019-01-19] MEDS ORDERED: CARBOPROST 250 MCG INJ IM PRN ×2 (08:00→21:30)
[2019-01-19] MEDS ORDERED: MISOPROSTOL 200 MCG TAB PR PRN ×2 (08:00→21:30)
[2019-01-19] MEDS ORDERED: OXYTOCIN 30 UNITS/LR 500 ML IV PRN ×2 (08:00→21:30)
[2019-01-19] MEDS ORDERED: OXYTOCIN 30 UNITS/LR 500 ML IV SCH (08:00)
[2019-01-19] MEDS: LACTATED RINGER'S 1,000 ML IV SCH ×2 (08:17→14:56)
[2019-01-19] MEDS ORDERED: CITRIC ACID/NA CITRATE 30 ML CUP PO ONE (09:00)
[2019-01-19] MEDS ORDERED: morphine SULFATE/PF (10 MG/10 ML) INJ ONE (16:38)
[2019-01-19] MEDS ORDERED: METOCLOPRAMIDE 10 MG INJ ONE (16:38)
[2019-01-19] MEDS ORDERED: KETOROLAC 30 MG INJ ONE ×2 (16:39→19:40)
[2019-01-19] MEDS ORDERED: PHENYLephrine (100 MCG/ML) 10ML SYG ONE (16:48)
[2019-01-19] MEDS ORDERED: EPHEDrine 25 MG/5 ML SYG ONE (17:04)
[2019-01-19] MEDS ORDERED: ONDANSETRON 4 MG INJ ONE (17:05)
[2019-01-19] MEDS ORDERED: OXYTOCIN 30 UNITS/LR 500 ML IV ONE (17:23)
[2019-01-19] MEDS ORDERED: DIPHENHYDRAMINE 50 MG INJ ONE (18:30)
[2019-01-19] MEDS ORDERED: DIPHENHYDRAMINE 50 MG INJ IV ONE (19:00)
[2019-01-19] MEDS ORDERED: ONDANSETRON 4 MG INJ IV PRN ×3 (20:00→21:30)
[2019-01-19] MEDS ORDERED: morphine 2 MG INJ IV PRN ×5 (20:00)
[2019-01-19] MEDS ORDERED: DIPHENHYDRAMINE 50 MG INJ IV PRN ×2 (20:00→21:30)
[2019-01-19] MEDS ORDERED: KETOROLAC 30 MG INJ IV PRN (20:00)
[2019-01-19] MEDS ORDERED: NALOXONE (0.4 MG/ML) INJ IV PRN (20:00)
[2019-01-19 21:00] VITALS: BP 113/63; PULSE 71; RESP 19
[2019-01-19] MEDS ORDERED: LACTATED RINGER'S 1,000 ML IV SCH (21:04)
[2019-01-19] MEDS ORDERED: ZOLPIDEM 5 MG TAB PO PRN (21:30)
[2019-01-19] MEDS ORDERED: LANOLIN HPA 1 PKT TOP PRN (21:30)
[2019-01-19 22:00] VITALS: BP 118/63; PULSE 71; RESP 19
[2019-01-20] MEDS: DIPHENHYDRAMINE 50 MG INJ IV PRN ×3 (00:31→16:24)
[2019-01-20] MEDS: KETOROLAC 30 MG INJ IV PRN ×3 (00:31→17:06)
[2019-01-20] MEDS: morphine 2 MG INJ IV PRN ×4 (00:55→15:32)
[2019-01-20 04:30] VITALS: BP 104/56; PULSE 63; RESP 19
[2019-01-20 08:00] VITALS: BP 101/53; PULSE 62; RESP 18
[2019-01-20] MEDS: SENNA/DOCUSATE NA (8.6MG/50MG) TAB PO SCH ×2 (09:00→20:23)
[2019-01-20 12:21] VITALS: BP 107/55; PULSE 61; RESP 18
[2019-01-20 15:40] VITALS: BP 103/58; PULSE 65; RESP 18
[2019-01-20 19:10] VITALS: BP 101/54; PULSE 66; RESP 18
[2019-01-20] MEDS ORDERED: OXYCODONE/ACETAMINOPHEN (5/325) TAB PO PRN (20:00)
[2019-01-20] MEDS: OXYCODONE/ACETAMINOPHEN (5/325) TAB PO PRN (20:23)
[2019-01-20] MEDS: IBUPROFEN 600 MG TAB PO SCH (23:16)
[2019-01-21] MEDS: OXYCODONE/ACETAMINOPHEN (5/325) TAB PO PRN ×5 (00:09→21:17)
[2019-01-21 03:02] VITALS: BP 100/59; PULSE 60; RESP 18
[2019-01-21] MEDS: IBUPROFEN 600 MG TAB PO SCH ×4 (05:30→23:52)
[2019-01-21] MEDS: SENNA/DOCUSATE NA (8.6MG/50MG) TAB PO SCH ×2 (08:15→21:18)
[2019-01-21 08:32] VITALS: BP 102/52; PULSE 63; RESP 18
[2019-01-21 16:07] VITALS: BP 110/69; PULSE 71; RESP 18
[2019-01-21 19:45] VITALS: BP 119/79; PULSE 71; RESP 18
[2019-01-22] MEDS: OXYCODONE/ACETAMINOPHEN (5/325) TAB PO PRN ×3 (02:35→15:37)
[2019-01-22] MEDS ORDERED: PETROLATUM 5 GM OINT TOP ONE (03:43)
[2019-01-22 04:30] VITALS: BP 100/58; PULSE 72; RESP 19
[2019-01-22] MEDS: IBUPROFEN 600 MG TAB PO SCH ×2 (05:41→13:14)
[2019-01-22] MEDS ORDERED: BISACODYL 10 MG SUPP PR ONE (08:00)
[2019-01-22 08:15] VITALS: BP 133/76; PULSE 61
[2019-01-22] MEDS ORDERED: DIPHTH/TET/ACEL PERTUSS (ADULT) 0.5 ML VIAL IM* ONE (09:00)
[2019-01-22] MEDS: SENNA/DOCUSATE NA (8.6MG/50MG) TAB PO SCH (09:06)
[2019-01-22] MEDS ORDERED: MEASLES,MUMPS,RUBELLA VACCINE INJ SC* ONE (15:30)
== END 2019-01-22 16:50 | disposition home or self-care (01) | DRG 788 ==
LOC: L-D 07:16 → PP1 21:00
PROVIDERS: ADMIT Obstetrics & Gynecology; ATTEND Obstetrics & Gynecology
PROC: 10D00Z1 Extraction of Products of Conception, Low, Open Approach (ICD-10-PCS; principal; 2019-01-19 09:00)
DX: O65.5 Obstructed labor due to abnormality of maternal pelvic organs (principal); O34.211 Maternal care for low transverse scar from previous cesarean delivery; Z3A.39 39 weeks gestation of pregnancy; Z37.0 Single live birth
CPT/HCPCS: 80307; 85025; 85610; 85730; 86592; 86850; 86900; 86901; 99464; J0690; J1200; J1885; J2210; J2270; J2274; J2370; J2405; J2590; J2765; J7120